=== PATIENT | female | born 1990 | race Asian ===

== ENCOUNTER 2021-09-17 09:26 | Inpatient (IN) | payer OTHER ==
[~2021-09-17] VITALS: Ht 160 cm; Wt 62.1 kg
[2021-09-17] MEDS ORDERED: KETOROLAC 30MG/ML VIAL IV STA (09:48)
[2021-09-17] MEDS ORDERED: ACETAMINOPHEN 325MG TABLET PO STA (09:48)
[2021-09-17] MEDS ORDERED: SODIUM CHLORIDE 0.9% 1,000 ML IV ONE ×2 (10:00→11:45)
[2021-09-17 10:11] LABS: HEMATOCRIT. 36.9 % (36.0-48.0); HEMOGLOBIN. 12.8 g/dL (12.0-16.0); MEAN CORPUSCULAR VOLUME 83.8 fL (81.0-99.0); MEAN PLATELET VOLUME 8.7 fl (7.4-10.4); PLATELET 130 x1000/uL (130-400); RED CELL DISTRIBUTION WIDTH 14.2 % (11.6-14.6)
[2021-09-17 10:20] LABS: CHLORIDE 106 mEq/L (98-107)
[2021-09-17 10:23] LABS: HCG SCREEN NEGATIVE
[2021-09-17 11:05] LABS: PLATELET ESTIMATE NORMAL
[2021-09-17] MEDS ORDERED: LEVOFLOXACIN 750MG PREMIX 150 ML IV ONE (11:45)
[2021-09-17 12:10] LABS: CLARITY URINE CLEAR (CLEAR); COLOR URINE YELLOW (YELLOW); KETONES URINE NEGATIVE (NEGATIVE); LEUKOCYTE ESTERASE URINE NEGATIVE (NEGATIVE); NITRITE URINE NEGATIVE (NEGATIVE); OCCULT BLOOD URINE NEGATIVE (NEGATIVE); PROTEIN URINE NEGATIVE (NEGATIVE); SPECIFIC GRAVITY URINE 1.011 (1.005-1.030)
[2021-09-17] MEDS ORDERED: KCL 20MEQ/100ML X 2 FOR TOTAL KCL 40MEQ/200ML IV SCH (13:00)
[2021-09-17] MEDS ORDERED: POTASSIUM CHLORIDE INJ 40 MEQ in DEXT 5% WATER 250 ML IV ONE (13:00)
[2021-09-17] MEDS: KCL 20MEQ/100ML X 2 FOR TOTAL KCL 40MEQ/200ML IV SCH ×2 (15:35→17:53)
[2021-09-17] MEDS ORDERED: MAGNESIUM/ALUMINUM HYDROXIDE/SIMETHICONE 30ML UDC PO PRN (16:00)
[2021-09-17] MEDS ORDERED: ACETAMINOPHEN 325MG TABLET PO PRN (16:00)
[2021-09-17] MEDS ORDERED: IPRATROPIUM/ALBUTEROL 0.5-3(2.5)MG/3ML NEB HHN PRN (16:00)
[2021-09-17] MEDS ORDERED: CEFTRIAXONE 1 G PREMIX 50 ML IV NR (16:00)
[2021-09-17] MEDS ORDERED: ONDANSETRON HCL 4MG/2ML INJ IV PRN (16:00)
[2021-09-17] MEDS ORDERED: CLONIDINE 0.1MG TABLET PO PRN (16:00)
[2021-09-17] MEDS ORDERED: AZITHROMYCIN 500MG/250ML 250 ML IV NR (16:15)
[2021-09-17] MEDS ORDERED: NALOXONE HCL 0.4MG/ML VIAL IV PRN (16:15)
[2021-09-17] MEDS: ENOXAPARIN 40MG/0.4ML SYR SUBCUT SCH (18:17)
[2021-09-17 21:35] VITALS: BP 118/77
[2021-09-17 22:00] VITALS: BP 118/77
[2021-09-17] MEDS: HYDROCODONE/ACETAMINOPHEN 5/325MG TABLET PO PRN (22:10)
[2021-09-17] MEDS: ACETAMINOPHEN 325MG TABLET PO PRN (22:10)
[2021-09-17] MEDS ORDERED: POTASSIUM CHLORIDE 20MEQ TABLET SR PO NR (22:30)
[2021-09-18] VITALS: BP 108/68
[2021-09-18] MEDS: GUAIFENESIN 200MG/10ML SUGAR FREE UDC PO PRN ×2 (00:13→17:03)
[2021-09-18 04:00] VITALS: BP 105/72
[2021-09-18 07:12] LABS: CHLORIDE 113 mEq/L (98-107)
[2021-09-18 07:18] LABS: PHOSPHORUS 2.5 mg/dL (2.5-4.9)
[2021-09-18 07:31] LABS: HEMATOCRIT. 31.3 % (36.0-48.0); HEMOGLOBIN. 10.5 g/dL (12.0-16.0); MEAN CORPUSCULAR HEMOGLOBIN 28.8 pg (28.0-32.0); MEAN CORPUSCULAR VOLUME 85.5 fL (81.0-99.0); MEAN PLATELET VOLUME 8.4 fl (7.4-10.4); PLATELET 153 x1000/uL (130-400); RED BLOOD CELL COUNT 3.66 mill/uL (4.2-5.4); RED CELL DISTRIBUTION WIDTH 14.6 % (11.6-14.6)
[2021-09-18 08:00] VITALS: BP 111/67
[2021-09-18] MEDS: ACETAMINOPHEN 325MG TABLET PO PRN (09:10)
[2021-09-18] MEDS: HYDROCODONE/ACETAMINOPHEN 5/325MG TABLET PO PRN ×3 (10:47→21:58)
[2021-09-18] MEDS ORDERED: LEVOFLOXACIN 750MG PREMIX 150 ML IV SCH (11:00)
[2021-09-18 12:00] VITALS: BP 104/71
[2021-09-18] MEDS ORDERED: VANCOMYCIN 1,250 MG in DEXT 5% WATER 250 ML IV SCH (12:00)
[2021-09-18] MEDS ORDERED: CEFTRIAXONE 1,000 MG in DEXTROSE 5% WATER 50 ML IV SCH (13:00)
[2021-09-18] MEDS ORDERED: AZITHROMYCIN 500 MG in DEXT 5% WATER 250 ML IV SCH (14:00)
[2021-09-18 14:02] LABS: PLATELET ESTIMATE NORMAL
[2021-09-18 16:00] VITALS: BP 104/73
[2021-09-18] MEDS: ENOXAPARIN 40MG/0.4ML SYR SUBCUT SCH (17:05)
[2021-09-18] MEDS: VANCOMYCIN 1,250 MG in DEXT 5% WATER 250 ML IV SCH (18:52)
[2021-09-18 20:00] VITALS: BP 111/67
[2021-09-18] MEDS ORDERED: IOHEXOL-300 100 ML BOTTLE ONE (20:13)
[2021-09-19] VITALS: BP 90/48
[2021-09-19] MEDS ORDERED: METOPROLOL TARTRATE 5MG/5ML VIAL IV PRN
[2021-09-19] MEDS: ACETAMINOPHEN 325MG TABLET PO PRN (01:24)
[2021-09-19 04:00] VITALS: BP 107/72
[2021-09-19] MEDS: VANCOMYCIN 1,250 MG in DEXT 5% WATER 250 ML IV SCH ×2 (06:28→17:10)
[2021-09-19 07:04] LABS: CHLORIDE 107 mEq/L (98-107)
[2021-09-19 07:09] LABS: EBV NUCLEAR IGG >600.0 U/mL (0.0-17.9); EBV VIRAL CAPSID AB IGM <36.0 U/mL (0.0-35.9); HIV SCREEN 4G Non Reactive (Non Reactive)
[2021-09-19 07:09] LABS: PHOSPHORUS 4.8 mg/dL (2.5-4.9)
[2021-09-19 07:11] LABS: HEMATOCRIT. 28.3 % (36.0-48.0); HEMOGLOBIN. 9.6 g/dL (12.0-16.0); LYMPHOCYTES % 10.9 % (20.0-50.0); MEAN CORPUSCULAR HEMOGLOBIN 29.3 pg (28.0-32.0); MEAN CORPUSCULAR VOLUME 86.4 fL (81.0-99.0); MEAN PLATELET VOLUME 7.7 fl (7.4-10.4); MONOCYTES % 9.9 % (2.0-8.0); NEUTROPHILS % 78.2 % (40.0-76.0); PLATELET 201 x1000/uL (130-400); RED BLOOD CELL COUNT 3.28 mill/uL (4.2-5.4); RED CELL DISTRIBUTION WIDTH 14.4 % (11.6-14.6)
[2021-09-19 07:39] VITALS: BP 115/76
[2021-09-19] MEDS ORDERED: POTASSIUM CHLORIDE INJ 40 MEQ in DEXT 5% WATER 250 ML IV ONE (07:45)
[2021-09-19] MEDS: HYDROCODONE/ACETAMINOPHEN 5/325MG TABLET PO PRN ×4 (08:41→21:14)
[2021-09-19] MEDS ORDERED: KCL 20MEQ/100ML X 2 FOR TOTAL KCL 40MEQ/200ML IV SCH (09:00)
[2021-09-19] MEDS ORDERED: POTASSIUM CHLORIDE 20MEQ/PACKET PO NR (10:30)
[2021-09-19 12:00] VITALS: BP 107/66
[2021-09-19] MEDS: LEVOFLOXACIN 750MG PREMIX 150 ML IV SCH (12:31)
[2021-09-19] MEDS: METRONIDAZOLE 500 MG PREMIX 100 ML IV SCH ×2 (13:59→21:13)
[2021-09-19] MEDS: ENOXAPARIN 40MG/0.4ML SYR SUBCUT SCH (16:25)
[2021-09-19 20:00] VITALS: BP 109/61
[2021-09-20] VITALS: BP 108/65
[2021-09-20 04:00] VITALS: BP 119/70
[2021-09-20 06:03] LABS: BASOPHILS % 0.3 % (0.0-2.0); EOSINOPHILS % 0.7 % (0.0-5.0); HEMATOCRIT. 29.5 % (36.0-48.0); LYMPHOCYTES % 10.3 % (20.0-50.0); MEAN CORPUSCULAR VOLUME 85.2 fL (81.0-99.0); MEAN PLATELET VOLUME 7.5 fl (7.4-10.4); NEUTROPHILS % 80.7 % (40.0-76.0); PLATELET 288 x1000/uL (130-400); RED BLOOD CELL COUNT 3.47 mill/uL (4.2-5.4); RED CELL DISTRIBUTION WIDTH 14.5 % (11.6-14.6)
[2021-09-20 06:19] LABS: CHLORIDE 100 mEq/L (98-107)
[2021-09-20 06:26] LABS: PHOSPHORUS 4.8 mg/dL (2.5-4.9)
[2021-09-20] MEDS: METRONIDAZOLE 500 MG PREMIX 100 ML IV SCH ×3 (06:30→21:41)
[2021-09-20] MEDS: VANCOMYCIN 1,250 MG in DEXT 5% WATER 250 ML IV SCH (06:30)
[2021-09-20 08:00] VITALS: BP 111/71
[2021-09-20] MEDS: ACETAMINOPHEN 325MG TABLET PO PRN (08:04)
[2021-09-20] MEDS: LEVOFLOXACIN 750MG PREMIX 150 ML IV SCH (10:19)
[2021-09-20 12:00] VITALS: BP 100/55
[2021-09-20] MEDS: VANCOMYCIN 1,000 MG in DEXT 5% WATER 250 ML IV SCH ×2 (14:26→21:41)
[2021-09-20 16:00] VITALS: BP 116/76
[2021-09-20] MEDS: HYDROCODONE/ACETAMINOPHEN 5/325MG TABLET PO PRN (16:06)
[2021-09-20] MEDS: ENOXAPARIN 40MG/0.4ML SYR SUBCUT SCH (16:06)
[2021-09-20] MEDS: IBUPROFEN 400MG TABLET PO SCH (18:58)
[2021-09-20 20:00] VITALS: BP 104/64
[2021-09-21] VITALS: BP 108/64
[2021-09-21 04:00] VITALS: BP 98/62
[2021-09-21] MEDS: HYDROCODONE/ACETAMINOPHEN 5/325MG TABLET PO PRN (04:48)
[2021-09-21] MEDS: VANCOMYCIN 1,000 MG in DEXT 5% WATER 250 ML IV SCH ×3 (05:26→21:40)
[2021-09-21] MEDS: METRONIDAZOLE 500 MG PREMIX 100 ML IV SCH ×3 (05:26→21:40)
[2021-09-21 05:43] LABS: BASOPHILS % 0.2 % (0.0-2.0)
[2021-09-21 05:47] LABS: EOSINOPHILS % 1.3 % (0.0-5.0); HEMATOCRIT. 30.5 % (36.0-48.0); HEMOGLOBIN. 10.3 g/dL (12.0-16.0); LYMPHOCYTES % 12.6 % (20.0-50.0); MEAN CORPUSCULAR HEMOGLOBIN 28.7 pg (28.0-32.0); MEAN CORPUSCULAR VOLUME 84.7 fL (81.0-99.0); MEAN PLATELET VOLUME 7.1 fl (7.4-10.4); NEUTROPHILS % 75.9 % (40.0-76.0); PLATELET 413 x1000/uL (130-400); RED CELL DISTRIBUTION WIDTH 14.3 % (11.6-14.6)
[2021-09-21 05:57] LABS: CHLORIDE 104 mEq/L (98-107)
[2021-09-21] MEDS: OMEPRAZOLE 20MG CAPSULE EXTENDED RELEASE PO SCH (06:25)
[2021-09-21 08:00] VITALS: BP 101/56
[2021-09-21] MEDS: IBUPROFEN 400MG TABLET PO SCH ×3 (09:13→17:03)
[2021-09-21] MEDS: LEVOFLOXACIN 750MG PREMIX 150 ML IV SCH (11:12)
[2021-09-21 16:00] VITALS: BP 109/63
[2021-09-21] MEDS: ENOXAPARIN 40MG/0.4ML SYR SUBCUT SCH (17:03)
[2021-09-21 20:00] VITALS: BP 98/59
[2021-09-22] VITALS (7 sets, daily range): BP systolic 92–105; BP diastolic 52–62
[2021-09-22] MEDS: HYDROCODONE/ACETAMINOPHEN 5/325MG TABLET PO PRN (04:40)
[2021-09-22] MEDS: METRONIDAZOLE 500 MG PREMIX 100 ML IV SCH ×3 (06:05→22:12)
[2021-09-22] MEDS: VANCOMYCIN 1,000 MG in DEXT 5% WATER 250 ML IV SCH ×3 (06:05→16:46)
[2021-09-22 06:33] LABS: BASOPHILS % 0.3 % (0.0-2.0); EOSINOPHILS % 1.4 % (0.0-5.0); HEMATOCRIT. 31.8 % (36.0-48.0); HEMOGLOBIN. 10.9 g/dL (12.0-16.0); LYMPHOCYTES % 15.6 % (20.0-50.0); MEAN CORPUSCULAR HEMOGLOBIN 29.4 pg (28.0-32.0); MEAN CORPUSCULAR VOLUME 85.5 fL (81.0-99.0); MEAN PLATELET VOLUME 6.7 fl (7.4-10.4); MONOCYTES % 8.6 % (2.0-8.0); NEUTROPHILS % 74.1 % (40.0-76.0); PLATELET 530 x1000/uL (130-400); RED BLOOD CELL COUNT 3.72 mill/uL (4.2-5.4); RED CELL DISTRIBUTION WIDTH 14.2 % (11.6-14.6)
[2021-09-22 06:45] LABS: CHLORIDE 100 mEq/L (98-107)
[2021-09-22 06:55] LABS: VANCOMYCIN TROUGH 15.9 ug/mL (5.0-10.0)
[2021-09-22] MEDS: OMEPRAZOLE 20MG CAPSULE EXTENDED RELEASE PO SCH (06:56)
[2021-09-22] MEDS: IBUPROFEN 400MG TABLET PO SCH ×3 (09:06→16:39)
[2021-09-22] MEDS: GUAIFENESIN 200MG/10ML SUGAR FREE UDC PO PRN ×2 (09:06→12:48)
[2021-09-22] MEDS ORDERED: IOHEXOL-300 100 ML BOTTLE ONE ×2 (11:54→16:25)
[2021-09-22] MEDS ORDERED: VANCOMYCIN 750 MG in DEXT 5% WATER 250 ML IV SCH (12:44)
[2021-09-22] MEDS: LEVOFLOXACIN 750MG PREMIX 150 ML IV SCH (12:47)
[2021-09-22] MEDS: VANCOMYCIN 750 MG in DEXT 5% WATER 250 ML IV SCH ×2 (14:00→22:13)
[2021-09-22] MEDS: ENOXAPARIN 40MG/0.4ML SYR SUBCUT SCH (16:39)
[2021-09-22 17:01] LABS: T4 FREE 1.71 ng/dL (0.76-1.46)
[2021-09-23 04:00] VITALS: BP 117/57
[2021-09-23] MEDS: METRONIDAZOLE 500 MG PREMIX 100 ML IV SCH ×3 (05:17→21:21)
[2021-09-23] MEDS: VANCOMYCIN 750 MG in DEXT 5% WATER 250 ML IV SCH ×3 (06:37→23:25)
[2021-09-23] MEDS: OMEPRAZOLE 20MG CAPSULE EXTENDED RELEASE PO SCH (07:10)
[2021-09-23 08:00] VITALS: BP 98/57
[2021-09-23] MEDS ORDERED: SODIUM BICARBONATE 4% (2.4MEQ) 5ML VIAL IV ONE (08:44)
[2021-09-23] MEDS ORDERED: LIDOCAINE HCL 1% 10 MG/ML 10ML VIAL ONE (08:44)
[2021-09-23] MEDS: IBUPROFEN 400MG TABLET PO SCH ×3 (09:37→16:53)
[2021-09-23 11:42] LABS: BASOPHILS % 0.2 % (0.0-2.0); EOSINOPHILS % 0.7 % (0.0-5.0); HEMATOCRIT. 32.4 % (36.0-48.0); HEMOGLOBIN. 10.8 g/dL (12.0-16.0); LYMPHOCYTES % 10.7 % (20.0-50.0); MEAN CORPUSCULAR HEMOGLOBIN 28.7 pg (28.0-32.0); MEAN CORPUSCULAR VOLUME 85.9 fL (81.0-99.0); MEAN PLATELET VOLUME 6.2 fl (7.4-10.4); NEUTROPHILS % 81.4 % (40.0-76.0); PLATELET 676 x1000/uL (130-400); RED BLOOD CELL COUNT 3.77 mill/uL (4.2-5.4); RED CELL DISTRIBUTION WIDTH 14.2 % (11.6-14.6)
[2021-09-23 11:53] LABS: PROTHROMBIN TIME 10.9 sec (9.6-11.0)
[2021-09-23] MEDS: LEVOFLOXACIN 750MG PREMIX 150 ML IV SCH (11:56)
[2021-09-23 12:00] VITALS: BP 97/59
[2021-09-23 14:12] LABS: CHLORIDE 101 mEq/L (98-107)
[2021-09-23 14:17] LABS: PHOSPHORUS 4.5 mg/dL (2.5-4.9)
[2021-09-23 16:00] VITALS: BP 98/58
[2021-09-23] MEDS: ENOXAPARIN 40MG/0.4ML SYR SUBCUT SCH (16:45)
[2021-09-23 20:00] VITALS: BP 102/60
[2021-09-24] VITALS: BP 101/59
[2021-09-24 04:00] VITALS: BP 103/64
[2021-09-24] MEDS: METRONIDAZOLE 500 MG PREMIX 100 ML IV SCH ×3 (05:22→22:10)
[2021-09-24] MEDS: VANCOMYCIN 750 MG in DEXT 5% WATER 250 ML IV SCH ×3 (06:26→23:12)
[2021-09-24] MEDS: OMEPRAZOLE 20MG CAPSULE EXTENDED RELEASE PO SCH (06:27)
[2021-09-24 08:00] VITALS: BP 97/69
[2021-09-24] MEDS: IBUPROFEN 400MG TABLET PO SCH ×3 (09:00→16:47)
[2021-09-24] MEDS: LEVOFLOXACIN 750MG PREMIX 150 ML IV SCH (11:52)
[2021-09-24 12:00] VITALS: BP 104/71
[2021-09-24 13:25] LABS: BASOPHILS % 0.4 % (0.0-2.0); EOSINOPHILS % 0.9 % (0.0-5.0); HEMATOCRIT. 31.5 % (36.0-48.0); HEMOGLOBIN. 10.7 g/dL (12.0-16.0); LYMPHOCYTES % 15.7 % (20.0-50.0); MEAN CORPUSCULAR HEMOGLOBIN 29.5 pg (28.0-32.0); MEAN CORPUSCULAR VOLUME 86.3 fL (81.0-99.0); MEAN PLATELET VOLUME 6.1 fl (7.4-10.4); MONOCYTES % 7.7 % (2.0-8.0); NEUTROPHILS % 75.3 % (40.0-76.0); PLATELET 772 x1000/uL (130-400); RED BLOOD CELL COUNT 3.64 mill/uL (4.2-5.4); RED CELL DISTRIBUTION WIDTH 14.4 % (11.6-14.6)
[2021-09-24 13:37] LABS: CHLORIDE 101 mEq/L (98-107)
[2021-09-24 16:00] VITALS: BP 100/64
[2021-09-24] MEDS: ENOXAPARIN 40MG/0.4ML SYR SUBCUT SCH (16:00)
[2021-09-24 20:00] VITALS: BP 105/61
[2021-09-25] VITALS: BP 99/55
[2021-09-25 04:00] VITALS: BP 113/71
[2021-09-25] MEDS: METRONIDAZOLE 500 MG PREMIX 100 ML IV SCH ×3 (05:24→21:06)
[2021-09-25] MEDS: VANCOMYCIN 750 MG in DEXT 5% WATER 250 ML IV SCH ×3 (06:38→21:06)
[2021-09-25 07:01] LABS: BASOPHILS % 0.6 % (0.0-2.0); EOSINOPHILS % 1.3 % (0.0-5.0); HEMATOCRIT. 31.6 % (36.0-48.0); HEMOGLOBIN. 10.9 g/dL (12.0-16.0); LYMPHOCYTES % 18.4 % (20.0-50.0); MEAN CORPUSCULAR HEMOGLOBIN 29.8 pg (28.0-32.0); MEAN CORPUSCULAR VOLUME 86.2 fL (81.0-99.0); NEUTROPHILS % 70.7 % (40.0-76.0); PLATELET 775 x1000/uL (130-400); RED BLOOD CELL COUNT 3.67 mill/uL (4.2-5.4); RED CELL DISTRIBUTION WIDTH 14.2 % (11.6-14.6)
[2021-09-25] MEDS: OMEPRAZOLE 20MG CAPSULE EXTENDED RELEASE PO SCH (07:10)
[2021-09-25 07:11] LABS: CHLORIDE 102 mEq/L (98-107)
[2021-09-25 08:00] VITALS: BP 114/74
[2021-09-25] MEDS: IBUPROFEN 400MG TABLET PO SCH ×3 (09:56→16:17)
[2021-09-25] MEDS: LEVOFLOXACIN 750MG PREMIX 150 ML IV SCH (09:57)
[2021-09-25 12:00] VITALS: BP 118/76
[2021-09-25 16:00] VITALS: BP 104/66
[2021-09-25] MEDS: ENOXAPARIN 40MG/0.4ML SYR SUBCUT SCH (16:00)
[2021-09-25 20:00] VITALS: BP 106/67
[2021-09-26] VITALS: BP 107/63
[2021-09-26 04:00] VITALS: BP 106/61
[2021-09-26] MEDS: VANCOMYCIN 750 MG in DEXT 5% WATER 250 ML IV SCH ×3 (05:21→21:49)
[2021-09-26] MEDS: METRONIDAZOLE 500MG TABLET PO SCH ×3 (05:22→21:49)
[2021-09-26 07:47] LABS: EOSINOPHILS % 1.5 % (0.0-5.0); HEMOGLOBIN. 10.5 g/dL (12.0-16.0); MEAN CORPUSCULAR HEMOGLOBIN 29.4 pg (28.0-32.0); MEAN CORPUSCULAR VOLUME 86.5 fL (81.0-99.0); MEAN PLATELET VOLUME 5.9 fl (7.4-10.4); MONOCYTES % 9.5 % (2.0-8.0); PLATELET 813 x1000/uL (130-400); RED BLOOD CELL COUNT 3.58 mill/uL (4.2-5.4)
[2021-09-26 08:08] VITALS: BP 105/68
[2021-09-26 08:13] LABS: CHLORIDE 105 mEq/L (98-107)
[2021-09-26] MEDS: FAMOTIDINE 20MG TABLET PO SCH ×2 (08:38→21:49)
[2021-09-26] MEDS: IBUPROFEN 400MG TABLET PO SCH ×3 (08:39→15:50)
[2021-09-26] MEDS: LEVOFLOXACIN 250MG TABLET PO SCH (11:04)
[2021-09-26 12:05] VITALS: BP 101/54
[2021-09-26] MEDS: NEOMYCIN-POLYMYXIN B-HYDROCORTISONE 1% OTIC SOLN 10ML RIGHT EAR SCH ×2 (13:02→23:51)
[2021-09-26 15:34] VITALS: BP 98/62
[2021-09-26] MEDS: ENOXAPARIN 40MG/0.4ML SYR SUBCUT SCH (15:49)
[2021-09-26] MEDS ORDERED: LEVO750T46 PO (19:11)
[2021-09-26] MEDS ORDERED: METR-167 PO (19:11)
[2021-09-26] MEDS ORDERED: LINE600T14 PO (19:11)
[2021-09-26 20:00] VITALS: BP 98/63
[2021-09-26] MEDS ORDERED: IBUP-2028 PO (20:13)
[2021-09-26] MEDS ORDERED: NEOM10DR11 RIGHT EAR (20:13)
[2021-09-26] MEDS ORDERED: TOPUD PO (20:13)
[2021-09-27] VITALS: BP 97/53
[2021-09-27 04:00] VITALS: BP 99/61
[2021-09-27] MEDS: NEOMYCIN-POLYMYXIN B-HYDROCORTISONE 1% OTIC SOLN 10ML RIGHT EAR SCH (05:27)
[2021-09-27] MEDS: VANCOMYCIN 750 MG in DEXT 5% WATER 250 ML IV SCH (05:27)
[2021-09-27] MEDS: METRONIDAZOLE 500MG TABLET PO SCH (05:28)
[2021-09-27 07:20] VITALS: BP 117/69
[2021-09-27] MEDS: IBUPROFEN 400MG TABLET PO SCH (08:00)
[2021-09-27] MEDS: FAMOTIDINE 20MG TABLET PO SCH (08:00)
[2021-09-27 08:11] VITALS: BP 117/69
[2021-09-27] MEDS: LEVOFLOXACIN 250MG TABLET PO SCH (10:53)
== END 2021-09-27 11:45 | disposition home or self-care (01) | DRG 871 ==
LOC: ER 09:59 → 6WST 15:07 → SUPCPDRO 15:39 → ENRESERV 20:32 → 8WST 09-22 23:55 → 6WST 09-23 00:04 → 8WST 09-23 00:15
PROVIDERS: ADMIT Internal Medicine; ATTEND Internal Medicine
PROC: 0GBH3ZX Excision of Right Thyroid Gland Lobe, Percutaneous Approach, Diagnostic (ICD-10-PCS; principal; 2021-09-23)
DX: A41.9 Sepsis, unspecified organism (principal); J18.9 Pneumonia, unspecified organism; E43 Unspecified severe protein-calorie malnutrition; E87.2 Acidosis; I76 Septic arterial embolism; E87.6 Hypokalemia; E04.1 Nontoxic single thyroid nodule; I51.7 Cardiomegaly; R13.10 Dysphagia, unspecified; D64.9 Anemia, unspecified; Z20.822 Contact with and (suspected) exposure to COVID-19; D75.839 Thrombocytosis, unspecified; E05.90 Thyrotoxicosis, unspecified without thyrotoxic crisis or storm; E88.09 Other disorders of plasma-protein metabolism, not elsewhere classified; I27.20 Pulmonary hypertension, unspecified; R73.9 Hyperglycemia, unspecified; R59.0 Localized enlarged lymph nodes; R65.20 Severe sepsis without septic shock; M54.2 Cervicalgia; Z88.0 Allergy status to penicillin; Z82.49 Family history of ischemic heart disease and other diseases of the circulatory system; Z83.3 Family history of diabetes mellitus; Z79.899 Other long term (current) drug therapy; Z87.891 Personal history of nicotine dependence; Z68.24 Body mass index [BMI] 24.0-24.9, adult
CPT/HCPCS: 20206; 36415; 70491; 71045; 71260; 73030; 76536; 76942; 80048; 80053; 80202; 81003; 82533; 83036; 83605; 83735; 84100; 84134; 84145; 84436; 84439; 84443; 84481; 84703; 85025; 85651; 86376; 86635; 86664; 86665; 87116; 87389; 87426; 87804; 88172; 88173; 88305; 92610; 93005; 93306; 93970; 94640; 99285; J1650; J1885; J1956; J2405; J3370; J3480; J3490; J7030; J7060; Q9967; U0003; U0005